=== PATIENT | male | born 1960 | race Caucasian/White ===

== ENCOUNTER 2019-05-19 09:08 | Outpatient (REF) | payer OTHER, SELFPAY ==
[2019-05-19 21:12] LABS: Anion Gap 10.6 mmol/L (3-11); BUN 15 mg/dL (7-18); CO2 27.4 mmol/L (21.0-32.0); CREATININE 0.92 mg/dL (0.70-1.30); Calcium 8.9 mg/dL (8.5-10.1); Calculated LDL 123 mg/dL; Chloride 101 mmol/L (98-107); Cholesterol 209 mg/dL (<200); Glucose 102 mg/dL (74-106); HDL Cholesterol 68 mg/dL (40-60); Potassium 4.3 mmol/L (3.5-5.1); Sodium 139 mmol/L (136-145); Triglyceride 90 mg/dL (<150)
== END 2019-05-19 09:28 ==
LOC: NCHCN 09:08
PROVIDERS: PCP Internal Medicine; Visit Provider Internal Medicine
DX: R03.0 Elevated blood-pressure reading, without diagnosis of hypertension (principal); Z13.220 Encounter for screening for lipoid disorders
CPT/HCPCS: 80048; 80061

== ENCOUNTER 2019-11-20 22:22 | Outpatient (REF) | payer OTHER, SELFPAY ==
[2019-11-20 21:21] LABS: Glucose 100 mg/dL (74-106)
[2019-11-20 21:30] LABS: Hemoglobin A1C 5.7 % (3.8-5.6)
== END 2019-11-20 22:42 ==
LOC: NCHCN 22:22
PROVIDERS: PCP Internal Medicine; Visit Provider Internal Medicine
DX: R73.01 Impaired fasting glucose (principal)
CPT/HCPCS: 82947; 83036

== ENCOUNTER 2020-06-20 12:03 | Outpatient (REF) | payer OTHER, SELFPAY ==
[2020-06-20 14:13] LABS: ALT 33 U/L (16-63); AST 21 U/L (15-37); Albumin 4.1 g/dL (3.4-5.0); Alkaline Phosphatase 71 U/L (46-116); Anion Gap 9.1 mmol/L (3-11); BUN 12 mg/dL (7-18); Bilirubin, Total 1.7 mg/dL (0.2-1.0); CO2 27.9 mmol/L (21.0-32.0); CREATININE 1.05 mg/dL (0.70-1.30); Calcium 8.8 mg/dL (8.5-10.1); Calculated LDL 123 mg/dL (<100); Chloride 102 mmol/L (98-107); Cholesterol 223 mg/dL (<200); Glucose 94 mg/dL (74-106); HDL Cholesterol 81 mg/dL (40-60); Sodium 139 mmol/L (136-145); Total Protein 7.6 g/dL (6.4-8.2); Triglyceride 99 mg/dL (<150)
[2020-06-20 14:20] LABS: Hemoglobin A1C 5.8 % (<5.7)
[2020-06-20 14:35] LABS: Bilirubin, Direct 0.25 mg/dL (0.00-0.20)
== END 2020-06-20 12:23 ==
LOC: NCHCN 12:03
PROVIDERS: PCP Internal Medicine; Visit Provider Internal Medicine
DX: R73.03 Prediabetes (principal)
CPT/HCPCS: 80048; 80061; 80076; 83036

== ENCOUNTER 2020-12-18 16:19 | Outpatient (REF) | payer OTHER, SELFPAY ==
[2020-12-18 22:08] LABS: Hemoglobin A1C 5.9 % (<5.7)
[2020-12-19 16:59] LABS: PSA, Screening 0.7 ng/mL (0.0-3.5)
== END 2020-12-18 16:20 | disposition home or self-care (01) ==
LOC: NCHCN 16:19
PROVIDERS: PCP Internal Medicine; Visit Provider Internal Medicine
DX: Z12.5 Encounter for screening for malignant neoplasm of prostate (principal); R73.03 Prediabetes
CPT/HCPCS: 84153; 83036

== ENCOUNTER 2021-07-14 14:49 | Outpatient (REF) | payer OTHER, SELFPAY ==
[2021-07-14 19:15] LABS: Anion Gap 9.2 mmol/L (3-11); BUN 15 mg/dL (7-18); CO2 27.8 mmol/L (21.0-32.0); CREATININE 0.9 mg/dL (0.70-1.30); Calcium 8.4 mg/dL (8.5-10.1); Calculated LDL 118 mg/dL (<100); Chloride 103 mmol/L (98-107); Cholesterol 211 mg/dL (<200); Glucose 97 mg/dL (74-106); HDL Cholesterol 78 mg/dL (40-60); Potassium 3.8 mmol/L (3.5-5.1); Sodium 140 mmol/L (136-145); Triglyceride 76 mg/dL (<150)
== END 2021-07-14 14:50 | disposition home or self-care (01) ==
LOC: NCHCN 14:49
PROVIDERS: PCP Internal Medicine; Visit Provider Internal Medicine
DX: R03.0 Elevated blood-pressure reading, without diagnosis of hypertension (principal); Z82.49 Family history of ischemic heart disease and other diseases of the circulatory system
CPT/HCPCS: 80048; 80061

== ENCOUNTER 2023-03-04 15:33 | Outpatient (REF) | payer OTHER, SELFPAY ==
[2023-03-04 15:43] LABS: BUN 12 mg/dL (7-18); Calcium 8.9 mg/dL (8.5-10.1); Calculated LDL 109 mg/dL (<100); Chloride 101 mmol/L (98-107); Cholesterol 207 mg/dL (<200); Estimated GFR 86.16 (mL/min/1.73m2); Glucose 107 mg/dL (74-106); HDL Cholesterol 83 mg/dL (40-60); Potassium 3.8 mmol/L (3.5-5.1); Sodium 137 mmol/L (136-145); Triglyceride 78 mg/dL (<150)
[2023-03-04 16:31] LABS: Hemoglobin A1C 5.6 % (<5.7)
== END 2023-03-04 15:34 | disposition home or self-care (01) ==
LOC: NCHCN 15:33
PROVIDERS: PCP Internal Medicine; Visit Provider Internal Medicine
DX: Z00.00 Encounter for general adult medical examination without abnormal findings (principal); R73.03 Prediabetes; R03.0 Elevated blood-pressure reading, without diagnosis of hypertension; Z13.220 Encounter for screening for lipoid disorders
CPT/HCPCS: 80048; 80061; 83036

== ENCOUNTER 2023-09-10 13:15 | Outpatient (REF) | payer OTHER, SELFPAY ==
[2023-09-10 15:04] LABS: Anion Gap 7.2 mmol/L (3-11); BUN 17 mg/dL (7-18); CO2 29.8 mmol/L (21.0-32.0); CREATININE 1.1 mg/dL (0.70-1.30); Calcium 8.9 mg/dL (8.5-10.1); Chloride 103 mmol/L (98-107); Estimated GFR 76.37 (mL/min/1.73m2); Glucose 101 mg/dL (74-106); Potassium 4.2 mmol/L (3.5-5.1); Sodium 140 mmol/L (136-145)
== END 2023-09-10 13:16 | disposition home or self-care (01) ==
LOC: NCHCN 13:15
PROVIDERS: PCP Internal Medicine; Visit Provider Internal Medicine
DX: I10 Essential (primary) hypertension (principal)
CPT/HCPCS: 80048

== ENCOUNTER 2024-03-06 16:04 | Outpatient (REF) | payer OTHER, SELFPAY ==
[2024-03-06 16:28] LABS: HCT 42.7 % (40.0-50.0); HGB 13.9 g/dL (13.5-17.5); MCH 30.1 pg (27.0-33.0); MCHC 32.6 % (32.0-36.0); MCV 92 fL (80-95); MPV 10.3 fL (8.0-11.0); Platelet Count 295 10^3/uL (130-400); RBC 4.62 10^6/uL (4.36-5.78); RDW 13.4 % (11.8-14.1); RDW-SD 45.8 fL; WBC 6.41 10^3/uL (4.4-10.8)
[2024-03-06 17:54] LABS: Hemoglobin A1C 5.7 % (<5.7)
[2024-03-06 18:29] LABS: ALT 35 U/L (16-63); AST 21 U/L (15-37); Albumin 3.8 g/dL (3.4-5.0); Alkaline Phosphatase 77 U/L (46-116); Anion Gap 10.2 mmol/L (3-11); BUN 11 mg/dL (7-18); Bilirubin, Total 1.29 mg/dL (0.2-1.0); CO2 26.8 mmol/L (21.0-32.0); Calcium 8.7 mg/dL (8.5-10.1); Calculated LDL 123 mg/dL (<100); Chloride 104 mmol/L (98-107); Cholesterol 229 mg/dL (<200); Estimated GFR 85.63 (mL/min/1.73m2); Glucose 99 mg/dL (74-106); HDL Cholesterol 90 mg/dL (40-60); Potassium 4.2 mmol/L (3.5-5.1); Sodium 141 mmol/L (136-145); Total Protein 7.5 g/dL (6.4-8.2); Triglyceride 84 mg/dL (<150)
== END 2024-03-06 16:05 | disposition home or self-care (01) ==
LOC: NCHCN 16:04
PROVIDERS: PCP Internal Medicine; Visit Provider Internal Medicine
DX: I10 Essential (primary) hypertension (principal)
CPT/HCPCS: 80053; 80061; 85027; 83036

== ENCOUNTER 2025-03-16 15:32 | Outpatient (REF) | payer OTHER, SELFPAY ==
[2025-03-16 16:07] LABS: Anion Gap 8.7 mmol/L (3-11); BUN 18 mg/dL (7-18); CO2 27.3 mmol/L (21.0-32.0); Calcium 9.0 mg/dL (8.5-10.1); Calculated LDL 69 mg/dL (<100); Chloride 100 mmol/L (98-107); Cholesterol 176 mg/dL (<200); Estimated GFR 85.10 (mL/min/1.73m2); Glucose 103 mg/dL (74-106); HDL Cholesterol 81 mg/dL (>or=40); Potassium 4.0 mmol/L (3.5-5.1); Sodium 136 mmol/L (136-145); Triglyceride 134 mg/dL (<150)
[2025-03-16 16:10] LABS: Hemoglobin A1C 5.9 % (<5.7)
[2025-03-16 21:44] LABS: PSA, Screening 0.8 ng/mL (<=4.5)
== END 2025-03-16 15:33 | disposition home or self-care (01) ==
LOC: NCHCN 15:32
PROVIDERS: PCP Internal Medicine; Visit Provider Internal Medicine
DX: Z00.00 Encounter for general adult medical examination without abnormal findings (principal); R73.03 Prediabetes
CPT/HCPCS: 80048; 80061; 84153; 83036

== ENCOUNTER 2025-03-30 16:45 | Outpatient (REF) | payer OTHER, SELFPAY ==
[2025-03-30 21:36] LABS: Microalb ug/mg Crea 9.1 ug/mg Cr
== END 2025-03-30 16:46 | disposition home or self-care (01) ==
LOC: NCHCN 16:45
PROVIDERS: PCP Internal Medicine; Visit Provider Internal Medicine
DX: I10 Essential (primary) hypertension (principal)
CPT/HCPCS: 82043; 82570